=== PATIENT | male | born 1940 | race Caucasian/White ===

== ENCOUNTER 2016-05-26 06:00 | Day surgery (SDC) | payer MEDICARE, OTHER ==
[2016-05-22 13:24] LABS: BASOPHILS 0.3 %; BASOPHILS ABSOLUTE 0.02 10/3/uL (0.0-0.16); EOSINOPHILS 1.2 %; EOSINOPHILS ABSOLUTE 0.08 10/3/uL (0.0-0.53); HEMOGLOBIN 16.4 g/dL (13.6-17.8); IMMATURE GRANULOCYTES 0.1 %; IMMATURE GRANULOCYTES ABSOLUTE 0.01 10/3/uL (0.0-0.11); LYMPHOCYTES 32.4 %; LYMPHOCYTES ABSOLUTE 2.25 10/3/uL (0.67-4.30); MEAN CORPUS HGB CONC 34.9 g/dL (32.0-36.0); MEAN CORPUSCULAR HEMOGLOB 32.2 pg (26.0-34.0); MEAN CORPUSCULAR VOLUME 92.2 fL (80-100); MEAN PLATELET VOLUME 11.2 fL (9.2-13.0); MONOCYTES 13.4 %; MONOCYTES ABSOLUTE 0.93 10/3/uL (0.21-1.20); NEUTROPHILS 52.6 %; NEUTROPHILS ABSOLUTE 3.65 10/3/uL (2.02-8.40); PLATELET COUNT 215 10/3/uL (150-400); WHITE BLOOD CELLS 6.9 10/3/uL (4.5-10.5)
[2016-05-22 13:26] LABS: MANUAL DIFF NO %
[2016-05-22 13:35] LABS: BUN (BLOOD UREA NITROGEN) 12 MG/DL (6-23); CALCIUM, SERUM 8.8 MG/DL (8.5-10.4); CHLORIDE, SERUM 102 MMOL/L (96-112); CO2 (CARBON DIOXIDE) 28 MMOL/L (24-34); CREATININE 1.03 MG/DL (0.70-1.30); GFR AFRICAN AMERICAN 81 ML/MIN (>=60); GFR NON AFRICAN AMERICAN 70 ML/MIN (>=60); SODIUM, SERUM 140 MMOL/L (135-148)
[2016-05-22 13:36] LABS: GLUCOSE, SERUM 161 MG/DL (60-99)
--- NOTE | ~2016-05-26 | OP ---
Record Of Operation [facility] [address] [place]. [address] NAME: DENA STONE : 38 STATUS : [place] [facility] [place] PAT#: [id number] AGE: 75 ADM/REG DATE : 05/26/16 MR#: [id number] REPORT SERV DATE: 05/26/16 DICTATED BY: JEOVANNY GUALLPA JR. DATE: 05/26/16 REPORT STATUS : Draft TRANSCRIBED BY: JOSHUA DATE: 05/26/16 DATE OF PROCEDURE: 05/26/2016 SURGEON: Jeovanny Guallpa M.D. COIN PURSE ASSEMBLER: Jhon Lockhart. PROCEDURE: Repair of right inguinal hernia. PREOPERATIVE DIAGNOSIS: Right inguinal hernia. POSTOPERATIVE DIAGNOSIS: Right inguinal hernia. ANESTHESIA: General. INDICATIONS: This patient has developed symptomatic inguinal hernia on the right side. Repair is indicated. FINDINGS: On exploration of the inguinal canal, there was evidence of a direct inguinal hernia. There was no evidence of any indirect hernia. This was repaired with a tension- free patch repair. DESCRIPTION OF PROCEDURE: With adequate general anesthesia, the patient was placed in the supine position. The right lower quadrant area was prepped and draped sterilely. Marcaine 0.5% was also used for local infiltration of anesthesia. A curvilinear incision was made and the groin incision deepened down through the subcutaneous tissues. The external oblique was opened from the area of the internal ring to the external ring. Underlying structure was dissected free. The cord was encircled with a Windsor drain. It was skeletonized. There was no indirect sac. The direct hernia was identified. Then, a Parietex ProGrip mesh was cut to appropriate size, placed to cover the defect securing it into the inguinal ligament medially at the inguinal ligament pubic tubercle, and superiorly to the conjoined tendon, and was placed over the transversalis. Precut defect was placed around the cord at the internal ring. This produced satisfactory repair. Then, the external oblique was closed over this with a running 2-0 Vicryl, subcutaneous tissues with 3-0 Vicryl, and the skin with dermal Monocryl. Sterile dressings were applied. The patient left the operating room in satisfactory condition. The estimated blood loss for the procedure was 10 mL. AMELIE/JOSHUA Jeovanny Guallpa Jr., M.D. / [id number] Record Of Operation [facility] [address] [place]. [address] NAME: DENA STONE : 38 STATUS : [place] [facility] [place] PAT#: [id number] AGE: 75 ADM/REG DATE : 05/26/16 MR#: [id number] REPORT SERV DATE: 05/26/16 DICTATED BY: JEOVANNY GUALLPA JR. DATE: 05/26/16 REPORT STATUS : Draft TRANSCRIBED BY: MODL DATE: 05/26/16 CC: Obey Zuniga Jr., M.D.
[~2016-05-26 06:00] MED LIST: ASAB PO; LISINOPRIL40 MG PO; LOP25 PO; ZOCOR20 PO
== END 2016-05-26 13:11 | disposition home or self-care (01) ==
LOC: SDC 06:00
PROVIDERS: Specialist
PROC: 0YU50JZ Supplement Right Inguinal Region with Synthetic Substitute, Open Approach (ICD-10-PCS; principal; 2016-05-26 07:45)
DX: K40.90 Unilateral inguinal hernia, without obstruction or gangrene, not specified as recurrent (principal); I10 Essential (primary) hypertension; E78.00 Pure hypercholesterolemia, unspecified; K21.9 Gastro-esophageal reflux disease without esophagitis; J44.9 Chronic obstructive pulmonary disease, unspecified; E78.5 Hyperlipidemia, unspecified; L40.9 Psoriasis, unspecified; Z88.8 Allergy status to other drugs, medicaments and biological substances; F17.200 Nicotine dependence, unspecified, uncomplicated; Z98.41 Cataract extraction status, right eye; Z98.42 Cataract extraction status, left eye; Z96.1 Presence of intraocular lens
CPT/HCPCS: 80048; 82962; 85025; A9270-GY; C1781; J0690; J2270; J2405; J2710; J3010